=== PATIENT | male | born 1940 | race Caucasian/White ===

== ENCOUNTER 2016-12-10 12:54 | Outpatient (CLI) ==
[2016-12-10 13:44] LABS: BILIRUBIN,URINE 1+ (NEGATIVE); KETONES,URINE Trace (NEGATIVE); LEUKOCYTE ESTERASE ,URINE Negative (NEGATIVE); NITRITE,URINE Negative (NEGATIVE); PH,URINE 5.5 (5-9); PROTEIN,URINE 1+ (NEGATIVE); URINE, BLOOD 1+ (NEGATIVE)
[2016-12-10 13:52] LABS: ADD URINE MICROSCOPIC YES
[2016-12-10 13:53] LABS: BACTERIA,URINE TRACE (NOT PRESENT)
--- NOTE | 2016-12-10 14:23 | CT ---
EXAM: CT pelvis HISTORY: Right hip pain, history of prostate cancer with radiation treatment. TECHNIQUE: CT pelvis without contrast. Detailed axial sections. Coronal and sagittal re-formation s. FINDINGS: No comparison imaging. Exam demonstrates severe moth-eaten appearance of the medial upper right iliac wing extending to par tially erode the sacroiliac joint and on into the right sacral ala. There could be mild extension of this process into the lowermost facet joints on the right. Another mostly lytic lesion is suggested in the upper more anterior right iliac wing measuring 1.3 cm. Hip joints proper are grossly within normal limits for age demonstrating mild osteoarthritis. There is at least mild degenerative facet arthropathy of the lower spine with degenerative disc disease l eading to moderate to severe central canal stenosis. There is mild scoliosis. Atherosclerotic disea se appears moderately severe. There is moderate distal colon diverticulosis incidentally noted. Sm all fatty bilateral inguinal hernias. IMPRESSION: Severe bony destruction involving the right vikram pelvis as described which would be most consistent with metastatic neoplasia given the patient's history. Less likely considerations would include atypical Paget's disease or infection.
--- NOTE | 2016-12-10 14:25 | CT ---
EXAM: CT right hip HISTORY: Right hip pain. TECHNIQUE: CT right hip without contrast. Detailed axial sections. Coronal and sagittal re-format ions. FINDINGS: No comparison imaging. Exam demonstrates severe moth-eaten appearance of the medial upper right iliac wing extending to par tially erode the sacroiliac joint and on into the right sacral ala. The right hip joint is within normal limits for age demonstrating mild osteoarthritis. IMPRESSION: Severe bony destruction involving the right vikram pelvis as described which would be most consistent with metastatic neoplasia given the patient's history. Less likely considerations would include aty pical Paget's disease or infection.
== END 2016-12-10 12:55 | disposition home or self-care (01) ==
LOC: RAD 12:54
PROVIDERS: ATTEND Emergency Medicine
DX: M25.551 Pain in right hip (principal); R31.9 Hematuria, unspecified
CPT/HCPCS: 81001

== ENCOUNTER 2017-03-21 08:44 | Outpatient (CLI) ==
[2017-03-21 12:37] LABS: BASOPHILS % (AUTO) 0.3 % (0.0-3.0); EOSINOPHILS # (AUTO) 0.1 K/ul (0.0-0.7); EOSINOPHILS % (AUTO) 1.3 % (0.0-7.0); HEMATOCRIT 36.9 % (42.0-52.0); HEMOGLOBIN 11.6 g/dl (14.0-18.0); IMMATURE GRANULOCYTE % (AUTO) 1.1 % (0.0-5.0); LYMPHOCYTES # (AUTO) 0.9 K/uL (0.60-3.4); LYMPHOCYTES % (AUTO) 11.5 (10.0-50.0); MEAN CORPUSCULAR HEMOGLOBIN 28.2 pg (27.0-31.0); MEAN CORPUSCULAR HGB CONC 31.4 (31.8-35.4); MEAN CORPUSCULAR VOLUME 89.8 fl (80.0-94.0); MONOCYTES # (AUTO) 0.8 K/uL (0.4-2.0); MONOCYTES % (AUTO) 10.9 (0-10); NEUTROPHILS # (AUTO) 5.6 K/ul (2.0-6.9); NEUTROPHILS % (AUTO) 74.9; PLATELET COUNT 291 10^3/uL (140-440); RED BLOOD COUNT 4.11 10^6/ul (4.70-6.10)
[2017-03-21 13:13] LABS: ALBUMIN 3.2 g/dL (3.4-5.0); ALBUMIN/GLOBULIN RATIO 0.68; ANION GAP 18.9; BILIRUBIN,TOTAL 0.36 mg/dL (0.00-1.20); BUN/CREATININE RATIO 22.11; CALCIUM 9.7 mg/dL (8.2-10.2); CHOL/HDL RATIO 2.6 (4.5-6.4); CREATININE 1.04 mg/dL (0.60-1.10); POTASSIUM 4.9 mmol/L (3.5-5.1); TOTAL PROTEIN 7.9 g/dL (5.8-8.1)
== END 2017-03-21 08:45 | disposition home or self-care (01) ==
LOC: LAB 08:44
PROVIDERS: ATTEND Emergency Medicine
DX: E78.5 Hyperlipidemia, unspecified (principal); I10 Essential (primary) hypertension
CPT/HCPCS: 36415; 80053; 80061; 84443; 85025

== ENCOUNTER 2017-06-20 15:30 | Outpatient (CLI) | payer OTHER | END 2017-06-20 15:31 | disposition home or self-care (01) | LOC: AMBL 15:30 ==